=== PATIENT | male | born 1955 | race Caucasian/White ===

== ENCOUNTER → 2017-07-07 13:31 | Outpatient (CLI) | payer BC ==
[2013-05-04 11:11] VITALS: BMI 29.9
[~2017-07-07 13:31] MED LIST: MAXZIDE-25 MG T1 TAB PO; RYBIX ODT50 MG PO; SMZ/TMP DS 800/160; ZESTRIL40 MG PO
== END | disposition home or self-care (01) ==
LOC: D.CT 13:31
DX: R91.8 Other nonspecific abnormal finding of lung field (principal)